=== PATIENT | male | born 1950 | race Two or more races ===

== ENCOUNTER 2016-09-26 07:12 | Outpatient (CLI) | payer MEDICARE, BC ==
[2016-09-26 12:07] LABS: PSA FREE 0.22 ng/mL (0.16-2.81)
[2016-09-26 12:08] LABS: PSA TOTAL 2.36 ng/mL (0.000-2.000)
== END 2016-09-26 07:13 | disposition home or self-care (01) ==
LOC: LAB.F 07:12
PROVIDERS: ATTEND Nurse Practitioner Family
DX: C61 Malignant neoplasm of prostate (principal)
CPT/HCPCS: 36415; 84154

== ENCOUNTER 2017-04-07 07:18 | Outpatient (CLI) | payer MEDICARE, BC ==
[2017-04-07 10:13] LABS: BASOPHILS % (AUTO) 0.3 %; EOSINOPHILS # (AUTO) 0.2 10^3/uL (0.0-0.7); EOSINOPHILS % (AUTO) 2.2 %; HGB - HEMOGLOBIN 15.3 g/dL (14.0-18.0); LYMPHOCYTES # (AUTO) 2.3 10^3/uL (1.5-3.5); LYMPHOCYTES % (AUTO) 29.5 %; MEAN CORPUSCULAR HEMOGLOBIN 29.1 pg (27.0-31.0); MEAN CORPUSCULAR HGB CONC 34.5 g/dL (32.0-36.0); MEAN CORPUSCULAR VOLUME 84.3 fL (80.0-94.0); MEAN PLATELET VOLUME 8.8 fL (7.4-11.4); MONOCYTES # (AUTO) 0.9 10^3/uL (0.0-1.0); MONOCYTES % (AUTO) 11.1 %; NEUTROPHILS # (AUTO) 4.5 10^3/uL (1.5-6.6); NEUTROPHILS % (AUTO) 56.9 %; PLT - PLATELET COUNT 209 10^3/uL (130-450); RED BLOOD COUNT 5.28 10^6/uL (4.70-6.10); RED CELL DISTRIBUTION WIDTH 12.6 % (12.0-15.0)
[2017-04-07 10:40] LABS: HB2 TOTAL 16.7 g/dL; HEMOGLOBIN A1C 0.91 g/dL; HEMOGLOBIN A1C % 7.1 % (4.6-6.2)
== END 2017-04-07 07:19 | disposition home or self-care (01) ==
LOC: LAB.F 07:18
PROVIDERS: ATTEND Radiology Radiation Oncology
DX: E11.9 Type 2 diabetes mellitus without complications (principal); C61 Malignant neoplasm of prostate
CPT/HCPCS: 36415; 83036; 85025

== ENCOUNTER 2017-04-15 08:00 | Outpatient (CLI) | payer MEDICARE, BC | END 2017-04-15 08:01 | disposition home or self-care (01) | LOC: LAB.F 08:00 | PROVIDERS: ATTEND Radiology Radiation Oncology | DX: C61 Malignant neoplasm of prostate (principal) | CPT/HCPCS: 36415; 84153 ==

== ENCOUNTER 2017-09-22 14:27 | Outpatient (CLI) | payer MEDICARE, OTHER ==
[2017-09-22 17:44] LABS: BASOPHILS % (AUTO) 0.3 %; EOSINOPHILS # (AUTO) 0.1 10^3/uL (0.0-0.7); EOSINOPHILS % (AUTO) 1.5 %; HGB - HEMOGLOBIN 14.6 g/dL (14.0-18.0); LYMPHOCYTES # (AUTO) 2.2 10^3/uL (1.5-3.5); LYMPHOCYTES % (AUTO) 34.6 %; MEAN CORPUSCULAR HEMOGLOBIN 28.9 pg (27.0-31.0); MEAN CORPUSCULAR HGB CONC 33.8 g/dL (32.0-36.0); MEAN CORPUSCULAR VOLUME 85.6 fL (80.0-94.0); MONOCYTES # (AUTO) 0.6 10^3/uL (0.0-1.0); MONOCYTES % (AUTO) 9.6 %; NEUTROPHILS # (AUTO) 3.5 10^3/uL (1.5-6.6); PLT - PLATELET COUNT 227 10^3/uL (130-450); RED BLOOD COUNT 5.05 10^6/uL (4.70-6.10); RED CELL DISTRIBUTION WIDTH 12.8 % (12.0-15.0); WHITE BLOOD COUNT 6.4 x10^3/uL (4.8-10.8)
[2017-09-22 17:49] LABS: HB2 TOTAL 15.8 g/dL; HEMOGLOBIN A1C 1.72 g/dL; HEMOGLOBIN A1C % 12.1 % (4.6-6.2)
[2017-09-22 17:55] LABS: PSA FREE 0.09 ng/mL (0.16-2.81)
[2017-09-22 17:56] LABS: PSA TOTAL 0.97 ng/mL (0.000-2.000)
== END 2017-09-22 14:28 | disposition home or self-care (01) ==
LOC: LAB.F 14:27
PROVIDERS: ATTEND Nurse Practitioner Family
DX: E11.9 Type 2 diabetes mellitus without complications (principal); C61 Malignant neoplasm of prostate
CPT/HCPCS: 36415; 82043; 83036; 84154; 85025

== ENCOUNTER 2017-10-06 10:21 | Outpatient (CLI) | payer MEDICARE, OTHER ==
--- NOTE | 2017-10-06 14:21 | XRAY Report ---
Procedure Date: 10/06/2017 Accession Number: [id number] / [id number] Procedure: XR - Foot 3 View LT CPT Code: FULL RESULT: EXAM: Foot 3 View LT DATE: 10/06/2017 10:47 AM CLINICAL HISTORY: CHRONIC L ANKLE PAIN + ACUTE L FOOT PAIN COMPARISON: None. TECHNIQUE: 3 views. FINDINGS: Bones: No evidence of fracture. Plantar calcaneal spurring. Joints: Mild degenerative changes of the interphalangeal joints. Soft Tissues: Normal. No soft tissue swelling. IMPRESSION: Mild degenerative changes. No evidence of fracture. RADIA
--- NOTE | 2017-10-06 14:22 | XRAY Report ---
Procedure Date: 10/06/2017 Accession Number: [id number] / [id number] Procedure: XR - Ankle 3 View LT CPT Code: FULL RESULT: EXAM: Ankle 3 View LT DATE: 10/06/2017 10:47 AM CLINICAL HISTORY: CHRONIC L ANKLE PAIN + ACUTE L FOOT PAIN COMPARISON: None. TECHNIQUE: 3 views. FINDINGS: Bones: Normal. No fractures or bone lesions. Joints: Normal. No tibiotalar joint effusion. No subluxations. Soft Tissues: Normal. No soft tissue swelling. IMPRESSION: Normal ankle radiography. RADIA
== END 2017-10-06 10:22 | disposition home or self-care (01) ==
LOC: DI 10:21
PROVIDERS: ATTEND Podiatrist
DX: M25.572 Pain in left ankle and joints of left foot (principal)

== ENCOUNTER 2018-01-01 07:36 | Outpatient (CLI) | payer MEDICARE, OTHER ==
[2018-01-01 17:35] LABS: HB2 TOTAL 15.3 g/dL; HEMOGLOBIN A1C 0.68 g/dL; HEMOGLOBIN A1C % 6.2 % (4.6-6.2)
[2018-01-01 18:14] LABS: CHOL/HDL RATIO 6.3 (<5.0); CHOLESTEROL 253 mg/dL; HDL CHOLESTEROL 40 mg/dL; LDL CHOLESTEROL,CALCULATED 147 mg/dL; LDL/HDL RATIO 3.7 (<3.6); VLDL CHOLESTEROL 66 mg/dL
== END 2018-01-01 07:37 | disposition home or self-care (01) ==
LOC: LAB.F 07:36
PROVIDERS: ATTEND Nurse Practitioner Family
DX: E78.5 Hyperlipidemia, unspecified (principal); E11.9 Type 2 diabetes mellitus without complications
CPT/HCPCS: 36415; 80061; 83036; 83721

== ENCOUNTER 2018-02-26 07:18 | Outpatient (CLI) | payer MEDICARE, OTHER ==
[2018-02-26 11:03] LABS: ALBUMIN 3.9 g/dL (3.2-5.5); ALKALINE PHOSPHATASE 45 IU/L (42-121); ALT ALANINE AMINOTRANSFERASE 32 IU/L (10-60); AST ASPARTATE AMINOTRANSFERASE 22 IU/L (10-42); BILIRUBIN,DIRECT 0.1 mg/dL (0.1-0.5); BILIRUBIN,TOTAL 0.7 mg/dL (0.2-1.0); CHOL/HDL RATIO 3.9 (<5.0); CHOLESTEROL 130 mg/dL; HDL CHOLESTEROL 33 mg/dL; LDL CHOLESTEROL,CALCULATED 54 mg/dL; LDL/HDL RATIO 1.6 (<3.6); TOTAL PROTEIN 6.9 g/dL (6.7-8.2); VLDL CHOLESTEROL 43 mg/dL
== END 2018-02-26 07:19 | disposition home or self-care (01) ==
LOC: LAB.F 07:18
PROVIDERS: ATTEND Nurse Practitioner Family
DX: E78.5 Hyperlipidemia, unspecified (principal)
CPT/HCPCS: 36415; 80061; 80076; 83721

== ENCOUNTER 2018-03-02 10:56 | Outpatient (CLI) | payer MEDICARE, OTHER ==
[2018-03-02 18:08] LABS: THYROID STIMULATING HORMONE 1.74 uIU/mL (0.34-5.60)
[2018-03-02 18:10] LABS: FREE T4 (FREE THYROXINE) 0.95 ng/dL (0.58-1.64)
== END 2018-03-02 10:57 | disposition home or self-care (01) ==
LOC: LAB.F 10:56
PROVIDERS: ATTEND Nurse Practitioner Family
DX: E78.5 Hyperlipidemia, unspecified (principal); I10 Essential (primary) hypertension
CPT/HCPCS: 36415; 84439; 84443

== ENCOUNTER 2018-04-02 08:05 | Outpatient (CLI) | payer MEDICARE, OTHER ==
[2018-04-02 11:47] LABS: HB2 TOTAL 15.7 g/dL; HEMOGLOBIN A1C 0.81 g/dL; HEMOGLOBIN A1C % 6.9 % (4.6-6.2)
== END 2018-04-02 08:06 | disposition home or self-care (01) ==
LOC: LAB.F 08:05
PROVIDERS: ATTEND Nurse Practitioner Family
DX: E11.9 Type 2 diabetes mellitus without complications (principal); Z79.4 Long term (current) use of insulin
CPT/HCPCS: 36415; 83036

== ENCOUNTER 2018-04-15 07:12 | Outpatient (CLI) | payer MEDICARE, OTHER ==
[2018-04-15 10:40] LABS: CHOL/HDL RATIO 3.1 (<5.0); CHOLESTEROL 119 mg/dL; HDL CHOLESTEROL 38 mg/dL; LDL CHOLESTEROL,CALCULATED 48 mg/dL; LDL/HDL RATIO 1.3 (<3.6); VLDL CHOLESTEROL 33 mg/dL
== END 2018-04-15 07:13 | disposition home or self-care (01) ==
LOC: LAB.F 07:12
PROVIDERS: ATTEND Nurse Practitioner Family
DX: E78.5 Hyperlipidemia, unspecified (principal); C61 Malignant neoplasm of prostate
CPT/HCPCS: 36415; 80061; 83721; 84153

== ENCOUNTER 2018-10-11 07:07 | Outpatient (CLI) | payer MEDICARE, OTHER ==
[2018-10-11 10:42] LABS: ALBUMIN 3.8 g/dL (3.2-5.5); ALBUMIN/GLOBULIN RATIO 1.3 (1.0-2.2); ALKALINE PHOSPHATASE 39 IU/L (42-121); ALT ALANINE AMINOTRANSFERASE 33 IU/L (10-60); AST ASPARTATE AMINOTRANSFERASE 24 IU/L (10-42); BILIRUBIN,TOTAL 0.7 mg/dL (0.2-1.0); BUN - BLOOD UREA NITROGEN 23 mg/dL (6-20); CALCIUM 8.9 mg/dL (8.5-10.3); CARBON DIOXIDE - CO2 25 mmol/L (21-32); CHLORIDE 106 mmol/L (101-111); CHOL/HDL RATIO 3.1 (<5.0); CHOLESTEROL 112 mg/dL; CREATININE 0.9 mg/dL (0.6-1.2); GFR - MDRD 84 (>89); GLUCOSE 163 mg/dL (70-100); HDL CHOLESTEROL 36 mg/dL; LDL CHOLESTEROL,CALCULATED 51 mg/dL; LDL/HDL RATIO 1.4 (<3.6); SODIUM 141 mmol/L (135-145); TOTAL PROTEIN 6.8 g/dL (6.7-8.2); VLDL CHOLESTEROL 25 mg/dL
[2018-10-11 10:50] LABS: HB2 TOTAL 13.7 g/dL; HEMOGLOBIN A1C 0.8 g/dL; HEMOGLOBIN A1C % 7.5 % (4.6-6.2)
== END 2018-10-11 07:08 | disposition home or self-care (01) ==
LOC: LAB.S 07:07
PROVIDERS: ATTEND Internal Medicine
DX: E78.5 Hyperlipidemia, unspecified (principal); E11.9 Type 2 diabetes mellitus without complications
CPT/HCPCS: 36415; 80053; 80061; 83036; 83721

== ENCOUNTER 2018-10-18 07:29 | Outpatient (CLI) | payer MEDICARE, OTHER | END 2018-10-18 07:30 | disposition home or self-care (01) | LOC: LAB.S 07:29 | PROVIDERS: ATTEND Radiology Radiation Oncology | DX: C61 Malignant neoplasm of prostate (principal) | CPT/HCPCS: 36415; 84153 ==

== ENCOUNTER 2018-11-10 07:29 | Outpatient (CLI) | payer MEDICARE, OTHER ==
--- NOTE | 2018-11-10 20:44 | Ultrasound Report ---
Reason: LEFT GROIN PAIN Procedure Date: 11/10/2018 Accession Number: [id number] / [id number] Procedure: US - Pelvic Limited or F/U CPT Code: FULL RESULT: EXAM: INGUINAL ULTRASOUND EXAM DATE: 11/10/2018 08:04 AM. CLINICAL HISTORY: Left groin pain. COMPARISON: None. TECHNIQUE: Real-time sonographic imaging of the left inguinal canal and vascular structures, including color-flow, was performed by the polymer materials consultant. Multiple site safety representative static images were saved for review. FINDINGS: Hernia: There is a left inguinal hernia demonstrated, positioned medial to the epigastric artery, containing fat and apparently also containing a small amount of bowel. This is shown to be reducible. There is some associated focal tenderness. The neck measures 9 mm. Soft Tissues: Normal. No fluid collections or adenopathy. Other: None. IMPRESSION: Reducible, left inguinal hernia containing fat and apparently a small amount of bowel. RADIA
== END 2018-11-10 07:30 | disposition home or self-care (01) ==
LOC: DI 07:29
PROVIDERS: ATTEND Surgery
DX: K40.90 Unilateral inguinal hernia, without obstruction or gangrene, not specified as recurrent (principal)
CPT/HCPCS: 76857

== ENCOUNTER 2018-11-30 06:57 | Day surgery (SDC) | payer MEDICARE, OTHER ==
[2018-11-30] MEDS ORDERED: fentaNYL 100 MCG/2 ML VIAL IVP ONE (06:58)
[2018-11-30] MEDS ORDERED: MIDAZOLAM 2 MG/2 ML VIAL IVP ONE (06:58)
[2018-11-30] MEDS ORDERED: LIDOCAINE-MPF 2% 5 ML VIAL IM ONE (06:58)
[2018-11-30] MEDS ORDERED: DEXAMETHASONE 4 MG/ML VIAL IVP ONE (06:58)
[2018-11-30] MEDS ORDERED: KETOROLAC 30 MG/ML VIAL IVP ONE (06:58)
[2018-11-30] MEDS ORDERED: PROPOFOL 200 MG/20 ML VIAL IVP ONE (06:58)
[2018-11-30] MEDS ORDERED: ONDANSETRON 4 MG/2 ML VIAL IVP ONE (06:58)
[2018-11-30] MEDS ORDERED: LACTATED RINGERS 1,000 ML IV ONE ×2 (07:02→09:54)
[2018-11-30] MEDS ORDERED: CEFAZOLIN SODIUM IN 0.9 % NACL 2 GM/100 ML BAG IV ONE (07:11)
--- NOTE | 2018-11-30 08:04 | ANESTHESIA ---
Pre-Anesthesia VS, & Labs - Diagnosis left inguinal hernia, umbilical hernia - Procedure Left inguinal hernia repair, umbilical hernia repair Vital Signs: Temp Pulse Resp BP Pulse Ox 36.1 C L 71 16 132/76 H 99 11/30/18 07:13 11/30/18 07:13 11/30/18 07:13 11/30/18 07:13 11/30/18 07:13 Height 5 ft 10 in Weight (kg) 83 kg Body Mass Index 26.6 - NPO >8 hours - Lab Results Current Lab Results: Laboratory Tests 11/30/18 07:24: POC Whole Bld Glucose 162 H Home Medications and Allergies Home Medications: Ambulatory Orders Atorvastatin Calcium 80 mg PO QPM 11/25/18 Lisinopril 5 mg PO DAILY 11/25/18 Naproxen [Naprosyn] 500 mg PO BID PRN 11/25/18 [place]-3 Acid Ethyl Esters 2 cap PO BIDWM 11/25/18 Gabapentin 900 mg PO QPM 10/09/17 Metformin HCl 1,000 mg PO BIDWM 10/09/17 SUMAtriptan succinate [Sumatriptan Succinate] 100 mg PO PRN PRN 10/09/17 glipiZIDE [Glipizide] 5 mg PO BID 10/09/17 Atorvastatin Calcium 80 mg PO QPM 11/25/18 Lisinopril 5 mg PO DAILY 11/25/18 Naproxen [Naprosyn] 500 mg PO BID PRN 11/25/18 [place]-3 Acid Ethyl Esters 2 cap PO BIDWM 11/25/18 Allergies/Adverse Reactions: Allergies Allergy/AdvReac Type Severity Reaction Status Date / Time No Known Drug Allergies Allergy Verified 10/08/17 15:07 Anes History & Medical History - Anesthetic History Anesthesia Complications: reports: No previous complications - Medical History Cardiovascular: reports: Hypertension, High cholesterol, Murmur Pulmonary: reports: None Gastrointestinal: reports: None Urinary: reports: Other Neuro: reports: Head injury, Migraines Musculoskeletal: reports: Osteoarthritis Endocrine/Autoimmune: reports: Type 2 diabetes Smoking Status: Never smoker - Surgical History General: Colonoscopy Eyes Ears Nose Throat (EENT): Tonsil/Adenoidectomy Exam General: Alert Dental: WNL Mouth Opening: Greater than 4 Fingerbreadths Mallampati classification: II Thyromental Distance: greater than 6 cm Respiratory: Lungs clear Cardiovascular: Regular rate, Normal S1, Normal S2 Plan Anesthesia Type: General Consent for Procedure(s) Verified and Reviewed: Yes Code Status: Attempt Resuscitation ASA classification: 2-Mild systemic disease Is this case an emergency?: No
[2018-11-30] MEDS ORDERED: ceFAZolin 1 GM VIAL ONE (08:16)
[2018-11-30] MEDS: LIDOCAINE-MPF 1% 30 ML VIAL ONE ×2 (08:56→09:34)
[2018-11-30] MEDS: BUPIVACAINE 0.5%-EPI 1:200000 PF 30 ML VIAL ONE ×2 (08:59→09:34)
--- NOTE | 2018-11-30 09:52 | OPERATIVE REPORT ---
Operative Report - General Procedure Date: 11/30/18 Planned Procedure: Umbilical hernia repair and left inguinal hernia repair Pre-Op Diagnosis: Umbilical hernia and left inguinal hernia Procedure Performed: Umbilical hernia repair and left inguinal hernia repair Post Op Diagnosis: Same - Procedure Note Primary Surgeon: Leticia Anesthesia Provider: CONG Abel Anesthesia Technique: General LMA, Local Pathology: None IV Fluids (mL): 500 Estimated Blood Loss (mL): 10 Findings: Moderate indirect left inguinal hernia Small umbilical hernia Complications: None apparent - Other Other Information/Narrative: After obtaining informed consent, the patient is brought to the operating room and placed in the supine position on the operating table. Following successful induction of general anesthesia, appropriate padding of all bony prominences, and placement of appropriate monitors, the abdomen and groin are prepped and draped in the standard surgical fashion. A timeout was held per scope protocol. All elements of the surgical safety checklist were followed before, during, and after this procedure. We began with the umbilical hernia. Following infiltration with local anesthetic and incision was created directly over the hernia defect. The umbilicus was released from the overlying skin and the hernia sac allowed to fall back into the abdominal cavity. The edges of the fascia were carefully defined. The defect was approximately 1.5 cm. Due to its small size and the patient's excellent physical conditioning, we elected to close it with i nterrupted Prolene suture. The wound was checked for hemostasis. It was irrigated with antibiotic solution. It was then closed with Vicryl Monocryl suture including bellybutton reconstruction. We now turned our attention to the left inguinal hernia. We began with an ileal inguinal nerve block by infiltrating a mixture of local anesthetics medial to the anterior superior iliac spine on the left. We then continued by infiltrating a site for the incision in the left lower quadrant with the same mixture of local anesthetics. An incision was created and carried down through the skin and subtendinous tissue to reveal the fascia of the external oblique aponeurosis. The aponeurosis was opened in the direction of its fibers. The fibers were reflected laterally. The ilioinguinal nerve was carefully identified and avoided. The spermatic cord and hernia sac were encircled with a Egan drain. The hernia sac and a small cord lipoma were then carefully dissected from the cord structures and reduced back into the abdominal cavity. The hernia was noted to be a moderate sized indirect inguinal hernia. We then repaired the hernia using an extended piece of Prolene hernia system mesh. This was deployed into the preperitoneal space with the posterior leaflet straightened and flattened in the space. A rena was then created in the overlying leaflet in the lateral aspect for placement of the spermatic cord. Spermatic cord was then gently placed in this space and the leaflets sewn closed. The spermatic cord was seen to lay without tension on the surface of the anterior leaflet. The anterior leaflet was then sewn to the pubic tubercle with a single 0 Vicryl stitch. The lateral aspect of the leaflet was then tucked under the external oblique aponeurosis. The wound was checked for hemostasis. The leaflets were then reapproximated after carefully replacing the ilioinguinal nerve on the surface of the spermatic cord. The leaflets were then closed with a running Vicryl suture. The wound was checked once again for hemostasis and irrigated again Emma's fascia was then reapproximated and Monocryl stitches were placed in the skin. All sponge, needle, and instrument counts were correct at the conclusion of the case. The patient was allowed to awake from anesthesia without difficulty and taken to the postanesthesia care unit in good condition.
[2018-11-30] MEDS ORDERED: ONDANSETRON 4 MG/2 ML VIAL IVP PRN (09:57)
[2018-11-30] MEDS ORDERED: oxyCODONE 5 MG TABLET PO PRN (09:57)
[2018-11-30] MEDS ORDERED: HYDROmorphone 0.5 MG/0.5 ML SYRINGE IVP PRN (09:57)
[2018-11-30] MEDS ORDERED: oxyCODONE 5 MG TABLET ONE (10:58)
[2018-11-30 11:35] VITALS: BP 145/75
== END 2018-11-30 06:58 | disposition home or self-care (01) ==
LOC: SDS 06:57
PROVIDERS: ATTEND Surgery
PROC: 0VBG0ZZ Excision of Left Spermatic Cord, Open Approach (ICD-10-PCS; 2018-11-30)
PROC: 0YU60JZ Supplement Left Inguinal Region with Synthetic Substitute, Open Approach (ICD-10-PCS; principal; 2018-11-30 08:30)
PROC: 0WQF0ZZ Repair Abdominal Wall, Open Approach (ICD-10-PCS; 2018-11-30 08:30)
DX: K40.90 Unilateral inguinal hernia, without obstruction or gangrene, not specified as recurrent (principal); K42.9 Umbilical hernia without obstruction or gangrene; D17.6 Benign lipomatous neoplasm of spermatic cord; E11.9 Type 2 diabetes mellitus without complications; I10 Essential (primary) hypertension; Z85.46 Personal history of malignant neoplasm of prostate
CPT/HCPCS: 49505; 49585; 55520; A9270; C1713; J0690; J7120

== ENCOUNTER 2019-04-11 11:12 | Outpatient (CLI) | payer MEDICARE, OTHER | END 2019-04-11 11:13 | disposition home or self-care (01) | LOC: LAB.S 11:12 | PROVIDERS: ATTEND Radiology Radiation Oncology | DX: C61 Malignant neoplasm of prostate (principal) | CPT/HCPCS: 36415; 84153 ==

== ENCOUNTER 2019-10-04 07:06 | Outpatient (CLI) | payer MEDICARE, OTHER | END 2019-10-04 07:07 | disposition home or self-care (01) | LOC: LAB.S 07:06 | PROVIDERS: ATTEND Radiology Radiation Oncology | DX: Z85.46 Personal history of malignant neoplasm of prostate (principal) | CPT/HCPCS: 36415; 84153 ==

== ENCOUNTER 2019-10-19 07:14 | Outpatient (CLI) | payer MEDICARE, OTHER ==
[2019-10-19 15:38] LABS: ALBUMIN 4.2 g/dL (3.2-5.5); ALBUMIN/GLOBULIN RATIO 1.2 (1.0-2.2); ALKALINE PHOSPHATASE 49 IU/L (42-121); ALT ALANINE AMINOTRANSFERASE 39 IU/L (10-60); AST ASPARTATE AMINOTRANSFERASE 25 IU/L (10-42); BILIRUBIN,TOTAL 0.8 mg/dL (0.2-1.0); BUN - BLOOD UREA NITROGEN 23 mg/dL (6-20); CALCIUM 9.2 mg/dL (8.5-10.3); CARBON DIOXIDE - CO2 27 mmol/L (21-32); CHLORIDE 102 mmol/L (101-111); CHOLESTEROL 153 mg/dL; GLUCOSE 142 mg/dL (70-100); HDL CHOLESTEROL 38 mg/dL; LDL CHOLESTEROL,CALCULATED 58 mg/dL; LDL/HDL RATIO 1.5 (<3.6); SODIUM 136 mmol/L (135-145); TOTAL PROTEIN 7.6 g/dL (6.7-8.2); VLDL CHOLESTEROL 57 mg/dL
== END 2019-10-19 07:15 | disposition home or self-care (01) ==
LOC: LAB.S 07:14
PROVIDERS: ATTEND Internal Medicine
DX: E78.5 Hyperlipidemia, unspecified (principal); I10 Essential (primary) hypertension; E11.9 Type 2 diabetes mellitus without complications; C61 Malignant neoplasm of prostate
CPT/HCPCS: 36415; 80053; 80061; 81599; 83036; 83721

== ENCOUNTER 2020-05-15 09:21 | Outpatient (CLI) | payer MEDICARE, OTHER | END 2020-05-15 09:22 | disposition left against medical advice (07) | LOC: EMS 09:21 | DX: M25.512 Pain in left shoulder (principal) ==

== ENCOUNTER 2020-05-15 10:31 | Observation (INO) | payer MEDICARE, OTHER ==
[2020-05-15 11:05] LABS: BASOPHILS % (AUTO) 0.6 %; EOSINOPHILS # (AUTO) 0.2 10^3/uL (0.0-0.7); EOSINOPHILS % (AUTO) 2.4 %; HCT - HEMATOCRIT 45.6 % (42.0-52.0); HGB - HEMOGLOBIN 15.2 g/dL (14.0-18.0); LYMPHOCYTES # (AUTO) 2.1 10^3/uL (1.5-3.5); LYMPHOCYTES % (AUTO) 34.6 %; MEAN CORPUSCULAR HEMOGLOBIN 28.7 pg (27.0-31.0); MEAN CORPUSCULAR HGB CONC 33.3 g/dL (32.0-36.0); MONOCYTES # (AUTO) 0.7 10^3/uL (0.0-1.0); MONOCYTES % (AUTO) 10.8 %; NEUTROPHILS # (AUTO) 3.2 10^3/uL (1.5-6.6); NEUTROPHILS % (AUTO) 51.3 %; PLT - PLATELET COUNT 236 10^3/uL (130-450); RED CELL DISTRIBUTION WIDTH 12.1 % (12.0-15.0); WHITE BLOOD COUNT 6.2 x10^3/uL (4.8-10.8)
--- NOTE | 2020-05-15 11:11 | XRAY Report ---
PROCEDURE: Chest 1 View X-Ray INDICATIONS: Chest Pain TECHNIQUE: One view of the chest was acquired. COMPARISON: None. FINDINGS: Surgical changes and devices: None. Lungs and pleura: No pleural effusions or pneumothorax. Lungs are clear. Mediastinum: Mediastinal contours appear normal. Heart size is normal. Bones and chest wall: No suspicious bony lesions. Overlying soft tissues appear unremarkable. IMPRESSION: No acute cardiopulmonary disease. Reviewed by: Junaid Bradford MD on 05/15/2020 11:09 AM [facility] Approved by: Junaid Bradford MD on 05/15/2020 11:09 AM [facility] Station ID: [id number]
--- NOTE | 2020-05-15 11:14 | ED Physician Documentation ---
History of Present Illness - Stated complaint Stated Complaint: SHOULDER PX/SENT BY EMS - Chief complaint Chief Complaint: Cardiac - History obtained from History obtained from: Patient - Additonal information Additional information: 69yF with pmh htn, hld, former smoker, heart murmur, p/w L chest pain radiating to L arm, sudden onset this am, severe constant, now mild, a/w sob. last stress test 3 years ago. denies fever back pain nausea diaphoresis. Review of Systems Ten Systems: 10 systems reviewed and negative Constitutional: denies: Fever, Chills Cardiac: reports: Chest pain / pressure Respiratory: reports: Dyspnea. denies: Cough GI: denies: Nausea Musculoskeletal: reports: Extremity pain PD PAST MEDICAL HISTORY - Past Medical History Cardiovascular: Hypertension, High cholesterol, Murmur Respiratory: None Neuro: Head injury, Migraines Endocrine/Autoimmune: Type 2 diabetes GI: None : Other HEENT: None Psych: Depression, Claustrophobia Musculoskeletal: Osteoarthritis - Past Surgical History General: Colonoscopy HEENT: Tonsil/Adenoidectomy - Present Medications Home Medications: Ambulatory Orders Medication Instructions Recorded Confirmed Gabapentin 900 mg PO QPM 10/09/17 05/15/20 Metformin HCl 1,000 mg PO BIDWM 10/09/17 05/15/20 glipiZIDE [Glipizide] 5 mg PO DAILY 10/09/17 05/15/20 Atorvastatin Calcium 80 mg PO QPM 11/25/18 05/15/20 lisinopriL [Lisinopril] 5 mg PO DAILY 11/25/18 05/15/20 - Allergies Allergies/Adverse Reactions: Allergies Allergy/AdvReac Type Severity Reaction Status Date / Time No Known Drug Allergies Allergy Verified 05/15/20 10:44 - Social History Smoking Status: Never smoker PD ED PE NORMAL - Vitals Vital signs reviewed: Yes - General General: Alert and oriented X 3, No acute distress, Well developed/nourished - HEENT HEENT: Atraumatic, PERRL, EOMI - Neck Neck: Supple, no meningeal sign, No bony TTP - Cardiac Cardiac: RRR, Other (systolic murmur) - Respiratory Respiratory: No respiratory distress, Clear bilaterally - Abdomen Abdomen: Non tender, Non distended - Male Male : Deferred - Rectal Rectal: Deferred - Back Back: No CVA TTP - Derm Derm: Normal color - Extremities Extremities: No deformity - Neuro Neuro: Alert and oriented X 3 - Psych Psych: Normal mood, Normal affect Results - Vitals Vitals: Vital Signs - 24 hr 05/15/20 05/15/20 05/15/20 10:36 11:05 11:57 Temperature 37 C 37.0 C Heart Rate 113 H 68 84 Respiratory 18 12 16 Rate Blood Pressure 147/90 H 143/90 H 149/75 H O2 Saturation 99 98 98 05/15/20 13:00 Temperature Heart Rate 76 Respiratory 16 Rate Blood Pressure 109/90 H O2 Saturation 98 Oxygen O2 Source Room air - EKG (time done) 1048 Rate: Rate (enter#) (77) Rhythm: NSR Ischemia: Normal ST segments, Q waves (Q wave with 1mm width in lead III and avF concerning for old ischemia. no prior ekg available other than 2019 single lead. ). No: T wave inversion - Labs Labs: Laboratory Tests 05/15/20 05/15/20 05/15/20 10:56 10:56 10:56 WBC 6.2 RBC 5.30 Hgb 15.2 Hct 45.6 MCV 86.0 MCH 28.7 MCHC 33.3 RDW 12.1 Plt Count 236 MPV 10.0 Neut # (Auto) 3.2 Lymph # (Auto) 2.1 Lipscomb # (Auto) 0.7 Eos # (Auto) 0.2 Baso # (Auto) 0.0 Absolute Nucleated RBC 0.00 Nucleated RBC % 0.0 Sodium 138 Potassium 3.8 Chloride 103 Carbon Dioxide 24 Anion Gap 11.0 BUN 23 H Creatinine 1.0 Estimated GFR (MDRD) 75 L Glucose 215 H Estimat Average Glucose Hemoglobin A1c % Calcium 9.3 Total Bilirubin 0.9 AST 20 ALT 34 Alkaline Phosphatase 50 Troponin I High Sens 3.3 Total Protein 7.2 Albumin 4.1 Globulin 3.1 Albumin/Globulin Ratio 1.3 Lipase 32 05/15/20 10:56 WBC RBC Hgb Hct MCV MCH MCHC RDW Plt Count MPV Neut # (Auto) Lymph # (Auto) Lipscomb # (Auto) Eos # (Auto) Baso # (Auto) Absolute Nucleated RBC Nucleated RBC % Sodium Potassium Chloride Carbon Dioxide Anion Gap BUN Creatinine Estimated GFR (MDRD) Glucose Estimat Average Glucose 189 H Hemoglobin A1c % 8.2 H Calcium Total Bilirubin AST ALT Alkaline Phosphatase Troponin I High Sens Total Protein Albumin Globulin Albumin/Globulin Ratio Lipase PD MEDICAL DECISION MAKING - ED course ED course: 69yM presents with high risk chest pain/LUE pain, found to have old inferior mi on ekg but no acute stemi, normal trop. plan for stress test tomorrow. patient agreeable. Departure - Departure Disposition: ED Place in Observation Clinical Impression: Chest pain, Shoulder pain, left, Shortness of breath Condition: Stable Discharge Date/Time: 05/15/20 14:45
[2020-05-15 11:28] LABS: ALBUMIN 4.1 g/dL (3.2-5.5); ALBUMIN/GLOBULIN RATIO 1.3 (1.0-2.2); BILIRUBIN,TOTAL 0.9 mg/dL (0.2-1.0); CALCIUM 9.3 mg/dL (8.5-10.3); POTASSIUM 3.8 mmol/L (3.5-5.0); TOTAL PROTEIN 7.2 g/dL (6.7-8.2)
[2020-05-15] MEDS ORDERED: ASPIRIN 325 MG TABLET PO STA (11:38)
[2020-05-15] MEDS ORDERED: LACTATED RINGERS 1,000 ML IV STA (12:39)
[2020-05-15] MEDS ORDERED: MORPHINE 2 MG/ML CARPUJECT IVP PRN (13:27)
[2020-05-15] MEDS ORDERED: SODIUM CHLORIDE FLUSH 0.9% 10 ML SYRINGE IVP PRN (13:27)
[2020-05-15] MEDS ORDERED: ONDANSETRON 4 MG/2 ML VIAL IVP PRN (13:27)
--- NOTE | 2020-05-15 13:40 | HISTORY & PHYSICAL EXAMINATION ---
Chief Complaint - Chief Complaint Chief Complaint: chest pain History of Present Illness - Admitted From Admitted From:: ER - History Obtained From Records Reviewed: [facility] History obtained from: pt Exam Limitations: no - History of Present Illness HPI Comment/Other: This is a 69-years old male with a past medical history significant for hypertension, hyperlipidemia, murmur, Head injury, migrainous headache, diabetic 2, depression, claustrophobia, osteoarthritis, Who present to ER complain left arm and left shoulder pain. Patient reports in this morning he suddenly feel left arm and left shoulder pain, he reported pain is 8-9 out of 10. He denies any injury, he denies any sensation abnormal or weakness unilaterally. The pain last about 45 to 1 hours. Patient report his arm still has mild pain. He denies any other location of pain such as no left chest pain. He did report he feel shortness breathing before his left arm pain. He denies nausea, vomiting, diaphoresis. He reported he had heart murmur about when he was 17 years old. Initiated troponin, EKG did not reveals acute heart attack. Chest x-ray was unremarkable. Discussed the care goal with patient, patient requests full code. History - Past Medical History Cardiovascular: reports: Hypertension, High cholesterol, Murmur Respiratory: reports: None Neuro: reports: Head injury, Migraines Endocrine/Autoimmune: reports: Type 2 diabetes GI: reports: None : reports: Other HEENT: reports: None Psych: reports: Depression, Claustrophobia Musculoskeletal: reports: Osteoarthritis MRSA Hx?: No - Past Surgical History General: reports: Colonoscopy HEENT: reports: Tonsil/Adenoidectomy - Family & Social History Family History: Mother: , Father: Family History Comment/Other: Patient reported he is adopted. He did not not know his father and mother medical condition but he did know his biological grandfather Medical condition. He reported his grandfather from congestive heart failure and related heart attack problem. Social History Notes: Patient reported he was cigarette smoker when he was very young, he denies alcohol or drug issue. Meds/Allgy - Home Medications Home Medications: Ambulatory Orders Medication Instructions Recorded Confirmed Gabapentin 900 mg PO QPM 10/09/17 05/15/20 Metformin HCl 1,000 mg PO BIDWM 10/09/17 05/15/20 glipiZIDE [Glipizide] 5 mg PO BID 10/09/17 05/15/20 Atorvastatin Calcium 80 mg PO QPM 11/25/18 05/15/20 lisinopriL [Lisinopril] 5 mg PO DAILY 11/25/18 05/15/20 - Allergies Allergies/Adverse Reactions: Allergies Allergy/AdvReac Type Severity Reaction Status Date / Time No Known Drug Allergies Allergy Verified 05/15/20 10:44 Review of Systems - Constitutional Constitutional: denies: Fatigue, Fever, Chills, Malaise, Weakness, Poor appeti te, Diaphoresis - Eyes Eyes: denies: Pain, Blurred vision, Field loss, Vision loss - Ears, Nose & Throat Ears, Nose & Throat: denies: Ear pain, Vertigo, Nosebleeds, Mouth lesions - Cardiovascular Cariovascular: reports: Exertional dyspnea. denies: Irregular heart rate, Palpitations, Chest pain, Edema, Lightheadedness, Syncope, Decr. exercise tolerance - Respiratory Respiratory: denies: Cough, Sputum production, Wheezing, Hemoptysis, Orthopnea, SOB at rest, SOB with exertion - Gastrointestinal Gastrointestinal: denies: Abdominal pain, Constipation, Diarrhea, Rectal bleeding, Black stools, Bloody stools, Nausea, Vomiting - Genitourinary Genitourinary: denies: Dysuria, Urgency, Incontinence - Musculoskeletal Musculoskeletal: reports: Other (Left arm and left shoulder pain, pain last about at 45 min to 1-hour). denies: Muscle pain, Back pain, Muscle aches, Stiffness, Limited range of motion, Muscle weakness - Integumentary Integumentary: denies: Rash, Lesions, Lumps - Neurological Neurological: denies: General weakness, Focal weakness, Headache, Dizziness, Numbness, Memory problems, Pre-existing deficit, Abnormal gait, Seizures, Inco ordination, Slurred speech - Psychiatric Psychiatric: denies: Depression, Suicidal - Endocrine Endocrine: denies: Polyuria, Polyphagia - Hematologic/Lymphatic Hematologic/Lymphatic: denies: Anemia, Petechiae, Blood clots Prior Level of Functionality: Patient is independent in the home Exam - Vital Signs Vital Signs: Vital Signs x48h Temp Pulse Resp BP Pulse Ox 05/15/20 13:00 76 16 109/90 H 98 05/15/20 11:57 84 16 149/75 H 98 05/15/20 11:05 37.0 C 68 12 143/90 H 98 05/15/20 10:36 37 C 113 H 18 147/90 H 99 - Physical Exam General Appearance: positive: No acute distress, Alert. negative: Lethargic Eyes Bilateral: positive: Normal inspection, PERRL, No lid inflammation ENT: positive: ENT inspection nml, No signs of dehydration. negative: Purulent nasal drainage Neck: positive: Nml inspection, Trachea midline. negative: Thyromegaly, Tracheal deviation Respiratory: positive: Chest non-tender, No respiratory distress, Breath sounds nml. negative: Wheezes, Rales, Rhonchi Cardiovascular: positive: Regular rate & rhythm, Diastolic murmur. negative: No murmur, Tachycardia, Bradycardia Peripheral Pulses: positive: 2+ Abdomen: positive: Non-tender, Nml bowel sounds, No distention. negative: Tende rness, Guarding, Rebound Back: positive: Nml inspection. negative: CVA tenderness (R), CVA tenderness (L) Skin: positive: Color nml, Warm, Dry. negative: Cyanosis, Diaphoresis, Pallor Extremities: positive: Non-tender, Full ROM, Nml appearance. negative: Calf tenderness Neurologic/Psychiatric: positive: Oriented x3, Motor nml, Sensation nml, Mood/affect nml. negative: Weakness, Sensory loss, Facial droop, Slurred/abnml speech, Depressed mood/affect Sepsis Event Note (H) - Evaluation Current Stage of Sepsis: Ruled out Conclusion/Plan - Problem List (1) Shoulder pain, left Conclusion/Plan: Patient report he suddenly have left arm and left shoulder pain and he report he has no other location pain. He denies unilaterally weakness or abnormal se nsation. Patient denies any injury. Patient has a history of hypertension and diabetic. His grandfather has congestive heart failure and heart attack. Initial troponin and EKG was unremarkable. We will have stress test for patient on tomorrow, continue to finish troponin test, and gas examiner, And echo test. ER already give patient 325 mg aspirin, will continue baby aspirin tomorrow. Lipid panel test on tomorrow (2) Diabetes Conclusion/Plan: Patient has history diabetic 2, no insulin in the home, we will start sliding scale, Check A1c, glucose check, hypoglycemia protocol (3) HTN (hypertension) Conclusion/Plan: Stable, we will resume home blood pressure medicine (4) Heart murmur Conclusion/Plan: Patient has history heart murmur in his young age, we will have echo To monitor - Lab Results Fish Bones: 05/15/20 10:56 05/15/20 10:56 Core Measures - Anticipated LOS I expect patient to be DC'd or transferred within 96 hours.: Yes - DVT/VTE - Prophylaxis VTE/DVT Device ordered at admit?: Yes VTE/DVT Prophylaxis med ordered at admit?: Yes
[2020-05-15] MEDS: INSULIN ASPART 300 UNIT/3 ML PEN SUBQ SCH ×2 (17:46→20:38)
[2020-05-15] MEDS: SODIUM CHLORIDE FLUSH 0.9% 10 ML SYRINGE IVP SCH (17:47)
--- NOTE | 2020-05-15 18:48 | PHARMACY PROGRESS NOTE ---
- Best Possible Medication History Admit Date and Time: 05/15/20 1327 Processed by: Pharmacy Medication History completed: Yes Patient Interview: Completed Secondary Source(s): Insurance records (Interviewed by Soni 05/15) As the person ultimately responsible for medication therapy, providers are able to order a medication from an existing home medication list in [facility] via the "Reconcile Routine" prior to Confirmation of that medication by support team assoc. Such practice is discouraged except when the physician, in their clinical judgment, deems that a medical need exists for a medication without regard to previous use.
[2020-05-15 20:12] LABS: ESTIMATED AVERAGE GLUCOSE 189 mg/dL (70-100); HEMOGLOBIN A1c% 8.2 % (4.27-6.07)
[2020-05-15] MEDS: FAMOTIDINE 20 MG TABLET PO SCH (20:35)
[2020-05-15] MEDS ORDERED: GABAPENTIN 300 MG CAPSULE PO SCH (21:00)
[2020-05-15 21:18] LABS: B. PARAPERTUSSIS- RESP PCR PAN NOT DETECTED; B. PERTUSSIS- RESP PCR PANEL NOT DETECTED; C. PNEUMONIAE- RESP PCR PANEL NOT DETECTED; CORONAVIRUS 229E-RESP PCR NOT DETECTED; CORONAVIRUS HKU1-RESP PCR NOT DETECTED; CORONAVIRUS NL63-RESP PCR NOT DETECTED; CORONAVIRUS OC43-RESP PCR NOT DETECTED; HUMAN METAPNEUMOVIRUS NOT DETECTED; INFLUENZA A- RESP PCR PANEL NOT DETECTED; INFLUENZA B - RESP PCR PANEL NOT DETECTED; M. PNEUMONIAE- RESP PCR PANEL NOT DETECTED; PARAINFLUENZA VIRUS 1 NOT DETECTED; PARAINFLUENZA VIRUS 2 NOT DETECTED; PARAINFLUENZA VIRUS 3 NOT DETECTED; PARAINFLUENZA VIRUS 4 NOT DETECTED; RHINOVIRUS/ENTEROVIRUS NOT DETECTED; RSV- RESP PCR PANEL NOT DETECTED; SARS-CoV-2 -RESP PCR PANEL NOT DETECTED
[2020-05-16] MEDS: SODIUM CHLORIDE FLUSH 0.9% 10 ML SYRINGE IVP SCH ×3 (00:11→17:48)
[2020-05-16] MEDS ORDERED: SODIUM CHLORIDE 0.9% 1,000 ML IV SCH (01:00)
[2020-05-16 05:39] LABS: BASOPHILS % (AUTO) 0.4 %; EOSINOPHILS # (AUTO) 0.2 10^3/uL (0.0-0.7); EOSINOPHILS % (AUTO) 3.4 %; HCT - HEMATOCRIT 42.1 % (42.0-52.0); HGB - HEMOGLOBIN 13.8 g/dL (14.0-18.0); LYMPHOCYTES # (AUTO) 1.9 10^3/uL (1.5-3.5); LYMPHOCYTES % (AUTO) 33.9 %; MEAN CORPUSCULAR HEMOGLOBIN 28.8 pg (27.0-31.0); MEAN CORPUSCULAR HGB CONC 32.8 g/dL (32.0-36.0); MEAN CORPUSCULAR VOLUME 87.7 fL (80.0-94.0); MEAN PLATELET VOLUME 10.5 fL (7.4-11.4); MONOCYTES # (AUTO) 0.7 10^3/uL (0.0-1.0); MONOCYTES % (AUTO) 11.7 %; NEUTROPHILS # (AUTO) 2.9 10^3/uL (1.5-6.6); NEUTROPHILS % (AUTO) 50.2 %; PLT - PLATELET COUNT 200 10^3/uL (130-450); RED CELL DISTRIBUTION WIDTH 12.1 % (12.0-15.0); WHITE BLOOD COUNT 5.7 x10^3/uL (4.8-10.8)
[2020-05-16 06:04] LABS: CREATININE 0.9 mg/dL (0.6-1.2); POTASSIUM 4.5 mmol/L (3.5-5.0)
[2020-05-16 06:26] LABS: CHOL/HDL RATIO 4.6 (<5.0); CHOLESTEROL 151 mg/dL; HDL CHOLESTEROL 33 mg/dL; LDL CHOLESTEROL,CALCULATED 77 mg/dL; LDL/HDL RATIO 2.3 (<3.6); TRIGLYCERIDES 207 mg/dL; VLDL CHOLESTEROL 41 mg/dL
[2020-05-16] MEDS: ACETAMINOPHEN 325 MG TABLET PO PRN ×2 (07:21→16:11)
[2020-05-16] MEDS: FAMOTIDINE 20 MG TABLET PO SCH (08:37)
[2020-05-16] MEDS: INSULIN ASPART 300 UNIT/3 ML PEN SUBQ SCH ×3 (08:39→17:09)
[2020-05-16] MEDS ORDERED: ENOXAPARIN 40 MG/0.4 ML SYRINGE SUBQ SCH (09:00)
[2020-05-16] MEDS ORDERED: ASPIRIN CHEW 81 MG TABLET PO SCH (09:00)
--- NOTE | 2020-05-16 09:32 | CT Report ---
PROCEDURE: HEAD WO INDICATIONS: left arm weakness and numbness TECHNIQUE: Noncontrast 4.5 mm thick angled axial sections acquired from the foramen magnum to the vertex. For r adiation dose reduction, the following was used: automated exposure control, adjustment of mA and/or kV according to patient size. COMPARISON: None. FINDINGS: Image quality: Excellent. CSF spaces: Basal cisterns are patent. No extra-axial fluid collections. Ventricles are normal in size and shape. Brain: No midline shift. No intracranial masses or hemorrhage. Salomon-white matter interface is norm al. Small, ill-defined hypodensity in the right internal capsule posterior limb. Small benign basal ganglia calcifications bilaterally. Skull and face: Calvarium and visualized facial bones are intact, without suspicious lesions. Sinuses: Visualized sinuses and mastoids are clear. IMPRESSION: 1. No evidence of hemorrhage or mass effect. 2. Indistinct hypodensity in the right internal capsule white matter tracts. This likely represents s mall vessel ischemia of uncertain chronicity. MRI is recommended. Reviewed by: Lucretia Garcia MD on 05/16/2020 8:30 AM [facility] Approved by: Lucretia Garcia MD on 05/16/2020 8:30 AM [facility] Station ID: [id number]
[2020-05-16] MEDS ORDERED: CLOPIDOGREL 75 MG TABLET PO SCH (13:10)
[2020-05-16] MEDS ORDERED: LORazepam 2 MG/ML VIAL IVP STA (14:25)
[2020-05-16 16:32] VITALS: BP 137/84
--- NOTE | 2020-05-16 17:13 | MRI Report ---
PROCEDURE: Brain W/O INDICATIONS: stroke TECHNIQUE: Noncontrast axial T1 spin echo, axial T2 fast spin echo, sagittal and axial FLAIR, coronal T2 fast sp in echo, axial gradient echo, axial diffusion and ADC through the brain. COMPARISON: CT of the brain performed earlier the same day. FINDINGS: Image quality: Excellent. CSF Spaces: Basal cisterns are patent. No extra-axial fluid collections. Ventricles are normal in size and shape. Brain: No intracranial masses or hemorrhage. Salomon/white matter interface is normal. Brainstem appe ars normal. Diffusion-weighted images demonstrate no acute ischemic insult. No chronic ischemic ins ults. There are minimal scattered T2 and FLAIR hyperintensities in subcortical white matter of bilate ral frontal and parietal regions most suggestive of age-related change versus chronic microvascular i schemic change. Normal intravascular flow voids are present. Skull and face: Calvarium has normal marrow signal. Orbits appear normal. Sinuses: Sinuses and mastoids are clear. IMPRESSION: 1. No MR evidence of acute ischemia. 2. Nonspecific minor T2 and FLAIR white matter changes are age-appropriate. Reviewed by: Lucretia Garcia MD on 05/16/2020 4:12 PM [facility] Approved by: Lucretia Garcia MD on 05/16/2020 4:12 PM [facility] Station ID: [id number]
--- NOTE | 2020-05-16 17:21 | Discharge Plan ---
Discharge Plan Problem Reviewed?: Yes Disposition: Home, Self Care Condition: Stable Diet: Diabetic Activity Restrictions: Activity as Tolerated Shower Restrictions: No (fall precaution) Instruction Topics: Heart Attack Warning Signs, Nuclear Stress Test, Stroke Sx Health Concerns: Your left arm pain, abnormal sensation and weakness were resolved. MRI reveals you has no stroke. Stress test, ECHO study, Troponin and EKG study all were unremarkable, did not reveals acute heart attack. You may resume your home medications, keep hydration at home, followup with your PCP in one to two weeks. Plan of Treatment: as the above. Care Goals: stabilization and improvement/resolve of your medical conditions Assessment: discussed the test results, and care plan with you, you understood. Additional Instructions or Follow Up instructions: You may follow-up with your PCP in 1 to 2 weeks. Shouldy your symptoms return or worsen, you may return to the ER or call 911 for help No Smoking: If you smoke, Please STOP! Call for help. Follow-up with: Nancy New ARNP [Primary Care Provider] -
--- NOTE | 2020-05-16 17:34 | DISCHARGE SUMMARY ---
Discharge Summary Admit Date: 05/15/20 Discharge Date: 05/16/20 Discharging Provider: Neeraj Xie Primary Care Provider: Nancy Dhillon Condition at Discharge: Stable Discharge Disposition: 01 Home, Self Care Discharge Facility Name: home - DIAGNOSES Discharge Diagnoses with Status of Each Condition: (1) Shoulder pain, left resolved. pt's Troponin study, EKG study, echo study, all show unremarkable. I got phone call from [facility] radiologist, he state pt's stress test is normal, and he will put the formal report in the computer. Now computer system is slow down. pt may Resume his home medications (2)Paresthesia left arm Resolved now. Patient Report he had left arm sensation abnormal with numbness a nd left arm weakness in the morning. CT of the head show No evidence of hemorrhage or mass effect, also likely represents small vessel Ischemic of uncertain chronicity, MRI is recommended. MRI of brain show no evidence of acute ischemia. Resume home medications (3) Diabetes A1c 8.2, resume home medications (4) HTN (hypertension) Stable, resume home blood pressure medicine (5) Heart murmur Echo study show unremarkable. - HPI History of Present Illness: This is a 69-years old male with a past medical history significant for hypertension, hyperlipidemia, murmur, Head injury, migrainous headache, diabetic 2, depression, claustrophobia, osteoarthritis, Who present to ER complain left arm and left shoulder pain. Patient reports in this morning he suddenly feel left arm and left shoulder pain, he reported pain is 8-9 out of 10. He denies any injury, he denies any sensation abnormal or weakness unilaterally. The pain last about 45 to 1 hours. Patient report his arm still has mild pain. He denies any other location of pain such as no left chest pain. He did report he feel shortness breathing before his left arm pain. He denies nausea, vomiting, diaphoresis. He reported he had heart murmur about when he was 17 years old. Initiated troponin, EKG did not reveals acute heart attack. Chest x-ray was unremarkable. Discussed the care goal with patient, patient requests full code. - HOSPITAL COURSE Hospital Course: Patient was admitted for left arm and shoulder pain. Patient denies injury. Patient has high risk to develop ACS. Patient had troponin study, EKG, echo, stress test, All show unremarkable. Patient report he had numbness and weakness in his left leg arm as well in this morning. CT and MRI of brain show no acute stroke. Patient's left arm pain, shoulder pain was resolved, patient abnormal sensation and weakness was resolved as well. Patient was discharged with hemodynamically stable condition - ALLERGIES Allergies/Adverse Reactions: Allergies Allergy/AdvReac Type Severity Reaction Status Date / Time No Known Drug Allergies Allergy Verified 05/15/20 10:44 - MEDICATIONS Home Medications: Ambulatory Orders Medication Instructions Recorded Confirmed Gabapentin 900 mg PO QPM 10/09/17 05/15/20 Metformin HCl 1,000 mg PO BIDWM 10/09/17 05/15/20 glipiZIDE [Glipizide] 5 mg PO DAILY 10/09/17 05/15/20 Atorvastatin Calcium 80 mg PO QPM 11/25/18 05/15/20 lisinopriL [Lisinopril] 5 mg PO DAILY 11/25/18 05/15/20 - PHYSICAL EXAM AT DISCHARGE General Appearance: positive: No acute distress, Alert. negative: Lethargic Eyes Bilateral: positive: Normal inspection, PERRL, No lid inflammation ENT: positive: ENT inspection nml, No signs of dehydration. negative: Purulent nasal drainage Neck: positive: Nml inspection, Trachea midline. negative: Thyromegaly, Tracheal deviation Respiratory: positive: Chest non-tender, No respiratory distress, Breath sounds nml. negative: Wheezes, Rales, Rhonchi Cardiovascular: positive: Regular rate & rhythm, Systolic murmur. negative: No murmur, Tachycardia, Bradycardia Peripheral Pulses: positive: 2+ Abdomen: positive: Non-tender, Nml bowel sounds, No distention. negative: Tenderness, Guarding, Rebound Back: positive: Nml inspection Skin: positive: Color nml, No rash, Warm, Dry. negative: Cyanosis, Diaphoresis, Pallor Extremities: positive: Non-tender, Full ROM, Nml appearance. negative: Calf tenderness Neurologic/Psychiatric: positive: Oriented x3, Motor nml, Sensation nml, Mood/affect nml. negative: Weakness, Sensory loss, Facial droop, Slurred/abnml speech, Depressed mood/affect - LABS Result Diagrams: 05/16/20 04:54 05/16/20 04:54 - SEPSIS Current Stage of Sepsis: Ruled out - FOLLOW UP Follow Up: Your left arm pain, abnormal sensation and weakness were resolved. MRI reveals you has no stroke. Stress test, ECHO study, Troponin and EKG study all were unremarkable, did not reveals acute heart attack. You may resume your home medications, keep hydration at home, followup with your PCP in one to two weeks. You may follow-up with your PCP in 1 to 2 weeks. Should your symptoms return or worsen, you may return to the ER or call 911 for help - TIME SPENT Time Spent in Discharge (Minutes): 30
[2020-05-16] MEDS ORDERED: ATORVASTATIN 40 MG TABLET PO SCH (21:00)
--- NOTE | 2020-05-17 08:48 | CARDIAC PROCEDURE NOTE ---
DATE OF SERVICE: 05/16/2020 Physician: Bina Chawla MD, [facility] INDICATION: Chest pain. CARDIAC RISK FACTORS: Male gender, diabetes, hypertension, hyperlipidemia. DESCRIPTION OF PROCEDURE: After signing informed consent, the patient underwent a Geovanny-protocol treadmill stress test with nuclear myocardial perfusion imaging. RESTING HEART RATE: 64. PEAK HEART RATE: 146 (95% predicted maximum heart rate for age). RESTING BLOOD PRESSURE: 125/74. PEAK BLOOD PRESSURE: 190/50. The patient exercised for 8 minutes on a Geovanny-protocol treadmill stress test. He achieved a peak heart rate of 146 (95% PMHR) and 10.16 METs. The patient had no chest pain, shoulder pain or arm pain. He had mild shortness of breath. Oxygen saturation was 94-98% on room air throughout the test. He rated his perceived exertion at 14/20 at peak on the Sotero scale. RESTING EKG: Normal sinus rhythm, poor R-wave progression. EKG at mid test showed new T-wave flattening in leads II, III, aVF, and V6. EKG at peak showed continued T-wave flattening and new ST depressions of 1.5 mm in leads II, III, aVF, and V5 through V6. These changes reverted to baseline after 3 minutes. SUMMARY: 1. Abnormal resting EKG. 2. Ischemic changes are seen by EKG criteria during this treadmill stress test. 3. Fair to good exercise tolerance. 4. Nuclear images were reported separately and showed: Normal distribution of tracer, no fixed or reversible perfusion defects. IMPRESSION: 1. Nonspecific EKG changes with exercise.. 2. Normal stress test. TD: 05/16/2020 12:46 INDU
--- NOTE | 2020-05-17 14:06 | Nuclear Medicine Report ---
PROCEDURE: Rest and exercise myocardial perfusion SPECT with gated imaging and ejection fraction INDICATIONS: 69 year old man with chest pain RADIOPHARMACEUTICAL: 10.4 mCi Tc-99m Myoview IV at rest and 38.9 mCi Tc-99m Myoview IV at peak exerc ise. [id number] was performed. TECHNIQUE: Radiopharmaceutical was injected at peak stress test, and also at rest. SPECT images wer e obtained. SPECT myocardial perfusion images were displayed in short axis, horizontal long axis, an d vertical long axis views. Gated images were reviewed using AutoQUANT software. COMPARISON: None available. FINDINGS: Raw data: There is good myocardial labeling by radiotracer. No significant motion artifacts. Lung- to-heart ratio is 0.37 (normal is less than 0.38 for tetrafosmin tracer). Left ventricle function: Gated images demonstrate normal left ventricle wall thickening. No segment al wall motion abnormality. No transient ischemic dilation; TID is 0.74 (normal less than 1.3). The left ventricle resting end-diastolic volume is normal. Left ventricle stress ejection fraction is > 70%; normal values are above 45%. Myocardial perfusion: There is normal distribution of activity in the left and right ventricular sherrie cardium. No fixed or reversible perfusion defects. IMPRESSION: 1. Normal myocardial perfusion images. No perfusion defect to suggest myocardial ischemia or infarct. 2. Normal left ventricular volume and systolic function. 3. Please correlate with stress EKG report. The result was discussed with Dr. Xie. PQRS ATTESTATIONS: Measure 322 - Is this imaging test primarily performed on a low-risk surgery patient for preoperative evaluation within 30 days preceding their low-risk non-cardiac surgery? Low-risk surgery is defined as cardiac or myocardial infarction less than 1%, including (but not limited to) endoscopic pr ocedures, superficial procedures, cataract surgery, and excisional breast surgery: Answer: No Measure 323 - Is this imaging test performed primarily for the monitoring of an asymptomatic patient who had percutaneous coronary intervention on the visit date or within 2 years of the visit date? An swer: No Measure 324 - Is this imaging test performed primarily for the initial detection and risk assessment on an asymptomatic, low coronary heart disease patient? Low CHD risk definition = clinicians should consider the maximum number of available patient factors used to estimate risk based on [place] (A TP III criteria), typically age, gender, diabetes, smoking status, and use of blood pressure medicati on, and integrate age appropriate estimates for missing elements, such as LDL or standard blood press ure. Answer: No Reviewed by: Junaid Bradford MD on 05/17/2020 10:42 AM PST Approved by: Junaid Bradford MD on 05/17/2020 10:42 AM PST Station ID: [id number]
== END 2020-05-16 17:53 | disposition home or self-care (01) ==
LOC: ED 10:31 → ICU 13:27
PROVIDERS: ADMIT Nurse Practitioner Gerontology; ATTEND Nurse Practitioner Gerontology
DX: M25.512 Pain in left shoulder (principal); M79.602 Pain in left arm; R20.2 Paresthesia of skin; I10 Essential (primary) hypertension; E78.5 Hyperlipidemia, unspecified; E11.9 Type 2 diabetes mellitus without complications; R01.1 Cardiac murmur, unspecified; F40.240 Claustrophobia; M19.90 Unspecified osteoarthritis, unspecified site; Z20.822 Contact with and (suspected) exposure to COVID-19; Z79.84 Long term (current) use of oral hypoglycemic drugs; Z79.899 Other long term (current) drug therapy; Z87.891 Personal history of nicotine dependence; Z82.49 Family history of ischemic heart disease and other diseases of the circulatory system
CPT/HCPCS: 36415; 70450; 70551; 71045; 78452; 80048; 80053; 80061; 83036; 83690; 84484; 85025; 87150; 87631; 93005; 93017; 93306; 96374; 99284; 99285; A9270; A9500; G0378; J2060; J7120; 0202U; 83721

== ENCOUNTER 2020-05-17 14:58 | Outpatient (CLI) | payer MEDICARE, OTHER ==
--- NOTE | 2020-05-17 15:51 | XRAY Report ---
PROCEDURE: Cervical Spine 2 View INDICATIONS: CERVICALGIA TECHNIQUE: 2 view(s) of the cervical spine were acquired. COMPARISON: None. FINDINGS: Bones: No fractures or dislocations to the C7-T1 level. The lateral masses of C1 appear intact on t he odontoid view. No suspicious bony lesions. There is straightening of normal cervical curvature w ith trace retrolisthesis of C5 on C6. Moderate to severe disc space narrowing is present C4-5, C5-6, C6-7. Multilevel uncovertebral arthropathy is present. Soft tissues: No prevertebral soft tissue swelling. IMPRESSION: Multiple degenerative changes most notable in the lower cervical spine. Reviewed by: Lori Barrera MD on 05/17/2020 3:49 PM PST Approved by: Lori Barrera MD on 05/17/2020 3:49 PM PST Station ID: [id number]
== END 2020-05-17 14:59 | disposition home or self-care (01) ==
LOC: DI.S 14:58
PROVIDERS: ATTEND Internal Medicine
DX: M47.22 Other spondylosis with radiculopathy, cervical region (principal)

== ENCOUNTER 2020-10-03 07:10 | Outpatient (CLI) | payer MEDICARE, OTHER | END 2020-10-03 07:11 | disposition home or self-care (01) | LOC: LAB.S 07:10 | PROVIDERS: ATTEND Radiology Radiation Oncology | DX: C61 Malignant neoplasm of prostate (principal) | CPT/HCPCS: 36415; 84153 ==

== ENCOUNTER 2020-12-06 07:09 | Outpatient (CLI) | payer MEDICARE, OTHER ==
[2020-12-06 15:05] LABS: BASOPHILS % (AUTO) 0.5 %; EOSINOPHILS # (AUTO) 0.2 10^3/uL (0.0-0.7); EOSINOPHILS % (AUTO) 2.3 %; HCT - HEMATOCRIT 43.6 % (42.0-52.0); HGB - HEMOGLOBIN 13.9 g/dL (14.0-18.0); LYMPHOCYTES # (AUTO) 2.2 10^3/uL (1.5-3.5); MEAN CORPUSCULAR HEMOGLOBIN 28.5 pg (27.0-31.0); MEAN CORPUSCULAR HGB CONC 31.9 g/dL (32.0-36.0); MEAN CORPUSCULAR VOLUME 89.3 fL (80.0-94.0); MEAN PLATELET VOLUME 11.2 fL (7.4-11.4); MONOCYTES # (AUTO) 0.6 10^3/uL (0.0-1.0); MONOCYTES % (AUTO) 8.9 %; NEUTROPHILS # (AUTO) 3.5 10^3/uL (1.5-6.6); PLT - PLATELET COUNT 234 10^3/uL (130-450); RED BLOOD COUNT 4.88 10^6/uL (4.70-6.10); RED CELL DISTRIBUTION WIDTH 12.4 % (12.0-15.0); WHITE BLOOD COUNT 6.5 x10^3/uL (4.8-10.8)
[2020-12-06 15:21] LABS: ALBUMIN 4.1 g/dL (3.2-5.5); ALBUMIN/GLOBULIN RATIO 1.4 (1.0-2.2); ALKALINE PHOSPHATASE 47 IU/L (42-121); ALT ALANINE AMINOTRANSFERASE 32 IU/L (10-60); AST ASPARTATE AMINOTRANSFERASE 20 IU/L (10-42); BUN - BLOOD UREA NITROGEN 26 mg/dL (6-20); CALCIUM 9.3 mg/dL (8.5-10.3); CARBON DIOXIDE - CO2 28 mmol/L (21-32); CHLORIDE 102 mmol/L (101-111); CHOL/HDL RATIO 4.3 (<5.0); CHOLESTEROL 164 mg/dL; CREATININE 0.9 mg/dL (0.6-1.2); GFR - MDRD 84 (>89); GLUCOSE 167 mg/dL (70-100); HDL CHOLESTEROL 38 mg/dL; LDL CHOLESTEROL,CALCULATED 64 mg/dL; LDL/HDL RATIO 1.7 (<3.6); SODIUM 140 mmol/L (135-145); TOTAL PROTEIN 7.1 g/dL (6.7-8.2); TRIGLYCERIDES 308 mg/dL; VLDL CHOLESTEROL 62 mg/dL
[2020-12-06 15:29] LABS: CREATININE,URINE 279.9 mg/dL; MICROALBUM/CREATININE RATIO,UR 2.9 ug/mg (<30.0); MICROALBUMIN,URINE 0.8 mg/dL (0-300.0)
[2020-12-06 21:01] LABS: ESTIMATED AVERAGE GLUCOSE 203 mg/dL (70-100); HEMOGLOBIN A1c% 8.7 % (4.27-6.07)
== END 2020-12-06 07:10 | disposition home or self-care (01) ==
LOC: LAB.S 07:09
PROVIDERS: ATTEND Internal Medicine
DX: E11.9 Type 2 diabetes mellitus without complications (principal); C61 Malignant neoplasm of prostate
CPT/HCPCS: 36415; 80053; 80061; 82043; 82570; 83036; 83721; 84153; 85025

== ENCOUNTER 2021-03-19 07:40 | Outpatient (CLI) | payer MEDICARE, OTHER | END 2021-03-19 07:41 | disposition home or self-care (01) | LOC: LAB.S 07:40 | PROVIDERS: ATTEND Internal Medicine | DX: C61 Malignant neoplasm of prostate (principal) | CPT/HCPCS: 36415; 84153 ==

== ENCOUNTER 2021-06-06 07:03 | Outpatient (CLI) | payer MEDICARE, OTHER ==
[2021-06-06 14:34] LABS: BASOPHILS % (AUTO) 0.4 %; EOSINOPHILS # (AUTO) 0.2 10^3/uL (0.0-0.7); EOSINOPHILS % (AUTO) 2.6 %; HCT - HEMATOCRIT 42.6 % (42.0-52.0); LYMPHOCYTES # (AUTO) 2.3 10^3/uL (1.5-3.5); LYMPHOCYTES % (AUTO) 40.5 %; MEAN CORPUSCULAR HEMOGLOBIN 28.7 pg (27.0-31.0); MEAN CORPUSCULAR HGB CONC 32.9 g/dL (32.0-36.0); MEAN CORPUSCULAR VOLUME 87.5 fL (80.0-94.0); MEAN PLATELET VOLUME 11.3 fL (7.4-11.4); MONOCYTES # (AUTO) 0.6 10^3/uL (0.0-1.0); MONOCYTES % (AUTO) 10.7 %; NEUTROPHILS # (AUTO) 2.6 10^3/uL (1.5-6.6); NEUTROPHILS % (AUTO) 45.6 %; PLT - PLATELET COUNT 226 10^3/uL (130-450); RED BLOOD COUNT 4.87 10^6/uL (4.70-6.10); RED CELL DISTRIBUTION WIDTH 12.7 % (12.0-15.0); WHITE BLOOD COUNT 5.7 x10^3/uL (4.8-10.8)
[2021-06-06 15:11] LABS: ALBUMIN/GLOBULIN RATIO 1.3 (1.0-2.2); ALKALINE PHOSPHATASE 37 IU/L (42-121); ALT ALANINE AMINOTRANSFERASE 28 IU/L (10-60); AST ASPARTATE AMINOTRANSFERASE 19 IU/L (10-42); BILIRUBIN,TOTAL 0.8 mg/dL (0.2-1.0); BUN - BLOOD UREA NITROGEN 28 mg/dL (6-20); CALCIUM 9.5 mg/dL (8.5-10.3); CARBON DIOXIDE - CO2 27 mmol/L (21-32); CHLORIDE 101 mmol/L (101-111); CHOL/HDL RATIO 3.1 (<5.0); CHOLESTEROL 127 mg/dL; GFR - MDRD 74 (>89); GLUCOSE 151 mg/dL (70-100); HDL CHOLESTEROL 41 mg/dL; LDL CHOLESTEROL,CALCULATED 58 mg/dL; LDL/HDL RATIO 1.4 (<3.6); SODIUM 139 mmol/L (135-145); TOTAL PROTEIN 7.1 g/dL (6.7-8.2); TRIGLYCERIDES 138 mg/dL; VLDL CHOLESTEROL 28 mg/dL
[2021-06-06 21:10] LABS: ESTIMATED AVERAGE GLUCOSE 186 mg/dL (70-100); HEMOGLOBIN A1c% 8.1 % (4.27-6.07)
== END 2021-06-06 07:04 | disposition home or self-care (01) ==
LOC: LAB.S 07:03
PROVIDERS: ATTEND Internal Medicine
DX: E11.9 Type 2 diabetes mellitus without complications (principal)
CPT/HCPCS: 36415; 80053; 80061; 83036; 83721; 85025

== ENCOUNTER 2021-06-24 08:15 | Day surgery (SDC) | payer MEDICARE, OTHER ==
[2021-06-24] MEDS ORDERED: LACTATED RINGERS 1,000 ML IV ONE ×2 (08:35→10:00)
--- NOTE | 2021-06-24 08:58 | ANESTHESIA ---
Pre-Anesthesia VS, & Labs - Diagnosis screening - Procedure colonoscopy Vital Signs: Temp Pulse Resp BP Pulse Ox 36.3 C L 86 12 159/110 H 98 06/24/21 08:35 06/24/21 08:35 06/24/21 08:35 06/24/21 08:35 06/24/21 08:35 Height: 5 ft 10 in Weight (kg): 77.4 kg Body Mass Index: 24.5 BMI Classification: Healthy weight - NPO >8 hours - Lab Results Current Lab Results: Laboratory Tests 06/24/21 08:38: POC Whole Bld Glucose 136 H Home Medications and Allergies Gabapentin 900 mg PO QPM 10/09/17 Metformin HCl 1,000 mg PO BIDWM 10/09/17 glipiZIDE [Glipizide] 5 mg PO DAILY 10/09/17 Atorvastatin Calcium 80 mg PO QPM 11/25/18 lisinopriL [Lisinopril] 5 mg PO DAILY 11/25/18 Allergies/Adverse Reactions: Allergies Allergy/AdvReac Type Severity Reaction Status Date / Time No Known Drug Allergies Allergy Verified 06/20/21 12:32 Anes History & Medical History - Anesthetic History Anesthesia Complications: reports: No previous complications - Medical History Cardiovascular: reports: Hypertension, High cholesterol, Murmur Pulmonary: reports: None Gastrointestinal: reports: Colon polyps Urinary: reports: Other Neuro: reports: Head injury, Migraines Musculoskeletal: reports: Osteoarthritis Endocrine/Autoimmune: reports: Type 2 diabetes Blood Disorders: reports: None Skin: reports: None Smoking Status: Never smoker - Surgical History General: reports: Hiatal hernia repair, Colonoscopy Eyes Ears Nose Throat (EENT): reports: Tonsil/Adenoidectomy Exam Dental: WNL Mallampati classification: I Thyromental Distance: greater than 6 cm Respiratory: Lungs clear Cardiovascular: Regular rate, Normal S1, Normal S2 Plan Anesthesia Type: Total IV Consent for Procedure(s) Verified and Reviewed: Yes Code Status: Attempt Resuscitation ASA classification: 2-Mild systemic disease Is this case an emergency?: No
[2021-06-24] MEDS ORDERED: PROPOFOL 500 MG/50 ML 500 MG/50 ML VIAL ONE (09:29)
[2021-06-24] MEDS ORDERED: GLYCOPYRROLATE 1 MG/5 ML VIAL ONE (09:57)
[2021-06-24 10:56] VITALS: BP 127/74
--- NOTE | 2021-06-24 12:04 | ANESTHESIA POST OP EVALUATION ---
Anesthesia Post Eval - Post Anesthesia Eval Vitals: Last Vital Signs Temp 36.2 C L 06/24/21 10:35 Pulse 88 06/24/21 10:35 Resp 16 06/24/21 10:35 BP 127/74 06/24/21 10:35 Pulse Ox 99 06/24/21 10:35 CV Function Including HR & BP: Stable Pain Control: Satisfactory Nausea & Vomiting: Negative Mental Status: Baseline Respiratory Status: Airway Patent Hydration Status: Satisfactory Anesthesia Complications: None
== END 2021-06-24 08:16 | disposition home or self-care (01) ==
LOC: SDS 08:15
PROVIDERS: ATTEND Surgery
PROC: 0DBE8ZZ Excision of Large Intestine, Via Natural or Artificial Opening Endoscopic (ICD-10-PCS; principal; 2021-06-24 09:30)
DX: R19.4 Change in bowel habit (principal); R19.7 Diarrhea, unspecified; K57.30 Diverticulosis of large intestine without perforation or abscess without bleeding; K64.8 Other hemorrhoids; E11.9 Type 2 diabetes mellitus without complications; I10 Essential (primary) hypertension; Z79.84 Long term (current) use of oral hypoglycemic drugs; Z79.899 Other long term (current) drug therapy; Z85.46 Personal history of malignant neoplasm of prostate; Z92.3 Personal history of irradiation
CPT/HCPCS: 45380; 81599; 83630; 87015; 87177; 87209; 87272; 87329; 87493; J7120; 87045; 87046

== ENCOUNTER 2021-09-10 07:52 | Outpatient (CLI) | payer MEDICARE, OTHER | END 2021-09-10 07:53 | disposition home or self-care (01) | LOC: LAB.S 07:52 | PROVIDERS: ATTEND Radiology Radiation Oncology | DX: C61 Malignant neoplasm of prostate (principal) | CPT/HCPCS: 36415; 84153 ==

== ENCOUNTER 2022-09-24 08:00 | Outpatient (CLI) | payer MEDICARE, OTHER ==
[2022-09-24 20:36] LABS: BILIRUBIN,URINE NEGATIVE (NEGATIVE); GLUCOSE, URINE (UA) >=1000 mg/dL (NEGATIVE); KETONES,URINE (UA) TRACE mg/dL (NEGATIVE); LEUKOCYTE ESTERASE, URINE NEGATIVE (NEGATIVE); NITRITE,URINE NEGATIVE (NEGATIVE); OCCULT BLOOD,URINE NEGATIVE (NEGATIVE); PROTEIN,URINE NEGATIVE (NEGATIVE); UROBILINOGEN,URINE 0.2 (NORMAL) E.U./dL (NORMAL)
[2022-09-24 20:45] LABS: CLARITY,URINE CLOUDY (CLEAR); RBC,URINE None Seen /HPF (0-5); SQUAMOUS EPITHELIAL CELL,UR NONE SEEN (<= Few); WBC,URINE 0-3 /HPF (0-3)
[2022-09-24 20:46] LABS: AMORPHOUS SEDIMENT,UR Marked /LPF; BACTERIA,URINE None Seen /HPF (None Seen)
== END 2022-09-24 23:59 | disposition home or self-care (01) ==
LOC: LAB.S 08:00
PROVIDERS: ATTEND Emergency Medicine
DX: N45.1 Epididymitis (principal)
CPT/HCPCS: 81001; 87086

== ENCOUNTER 2022-10-28 08:00 | Outpatient (CLI) | payer MEDICARE ==
--- NOTE | 2022-10-28 18:04 | XRAY Report ---
PROCEDURE: Wrist 3 View RT INDICATIONS: RIGHT WRIST SPRAIN TECHNIQUE: 3 views of the wrist were acquired. COMPARISON: None. FINDINGS: Bones: No fractures or dislocations. No suspicious bony lesions. Soft tissues: No suspicious soft tissue calcifications. IMPRESSION: No acute bony abnormality. If there is anatomic snuff box tenderness, consider wrist immobilization a nd repeat radiographs in 10-14 days or cross-sectional imaging now. If pain persists with conservativ e management, consider repeat radiographs in 10-14 days or cross-sectional imaging. Reviewed by: Hossein Dawson MD on 10/28/2022 6:03 PM PDT Approved by: Hossein Dawson MD on 10/28/2022 6:03 PM PDT Station ID: [id number]
== END 2022-10-28 23:59 | disposition home or self-care (01) ==
LOC: DI.S 08:00
PROVIDERS: ATTEND Physician Assistant Medical
DX: S66.911A Strain of unspecified muscle, fascia and tendon at wrist and hand level, right hand, initial encounter (principal)

== ENCOUNTER 2023-01-14 07:05 | Outpatient (CLI) | payer MEDICARE, OTHER ==
[2023-01-14 15:13] LABS: BASOPHILS % (AUTO) 0.4 %; EOSINOPHILS # (AUTO) 0.1 10^3/uL (0.0-0.7); EOSINOPHILS % (AUTO) 2.5 %; HCT - HEMATOCRIT 44.7 % (42.0-52.0); HGB - HEMOGLOBIN 14.4 g/dL (14.0-18.0); LYMPHOCYTES # (AUTO) 2.3 10^3/uL (1.5-3.5); LYMPHOCYTES % (AUTO) 41.6 %; MEAN CORPUSCULAR HEMOGLOBIN 28.2 pg (27.0-31.0); MEAN CORPUSCULAR HGB CONC 32.2 g/dL (32.0-36.0); MEAN CORPUSCULAR VOLUME 87.5 fL (80.0-94.0); MEAN PLATELET VOLUME 10.6 fL (7.4-11.4); MONOCYTES # (AUTO) 0.5 10^3/uL (0.0-1.0); MONOCYTES % (AUTO) 9.4 %; NEUTROPHILS # (AUTO) 2.6 10^3/uL (1.5-6.6); NEUTROPHILS % (AUTO) 45.9 %; PLT - PLATELET COUNT 257 10^3/uL (130-450); RED BLOOD COUNT 5.11 10^6/uL (4.70-6.10); RED CELL DISTRIBUTION WIDTH 12.4 % (12.0-15.0); WHITE BLOOD COUNT 5.6 x10^3/uL (4.8-10.8)
[2023-01-14 15:52] LABS: ALBUMIN 4.2 g/dL (3.2-5.5); ALBUMIN/GLOBULIN RATIO 1.8 (1.0-2.2); ALKALINE PHOSPHATASE 47 IU/L (42-121); ALT ALANINE AMINOTRANSFERASE 20 IU/L (10-60); AST ASPARTATE AMINOTRANSFERASE 17 IU/L (10-42); BILIRUBIN,TOTAL 0.4 mg/dL (0.2-1.0); BUN - BLOOD UREA NITROGEN 21 mg/dL (6-20); CALCIUM 9.4 mg/dL (8.5-10.3); CARBON DIOXIDE - CO2 30 mmol/L (21-32); CHLORIDE 105 mmol/L (101-111); CHOL/HDL RATIO 6.9 (<5.0); CHOLESTEROL 248 mg/dL; GFR - MDRD 74 (>89); GLUCOSE 130 mg/dL (74-104); HDL CHOLESTEROL 36 mg/dL; LDL CHOLESTEROL,CALCULATED 143 mg/dL; POTASSIUM 4.2 mmol/L (3.5-4.5); SODIUM 140 mmol/L (135-145); TOTAL PROTEIN 6.6 g/dL (6.4-8.9); TRIGLYCERIDES 344 mg/dL (48-352); VLDL CHOLESTEROL 69 mg/dL
[2023-01-14 20:34] LABS: ESTIMATED AVERAGE GLUCOSE 148 mg/dL (70-100); HEMOGLOBIN A1c% 6.8 % (4.27-6.07)
== END 2023-01-14 07:06 | disposition home or self-care (01) ==
LOC: LAB.S 07:05
PROVIDERS: ATTEND Registered Nurse
DX: I10 Essential (primary) hypertension (principal); Z79.899 Other long term (current) drug therapy; E78.5 Hyperlipidemia, unspecified; E11.9 Type 2 diabetes mellitus without complications; C61 Malignant neoplasm of prostate
CPT/HCPCS: 36415; 80053; 80061; 83036; 83721; 84153; 85025

== ENCOUNTER 2023-03-12 08:00 | Outpatient (CLI) | payer MEDICARE | END 2023-03-12 08:01 | disposition home or self-care (01) | LOC: LAB.S 08:00 | PROVIDERS: ATTEND Physician Assistant Medical | DX: E16.2 Hypoglycemia, unspecified (principal) | CPT/HCPCS: 82962 ==

== ENCOUNTER 2023-03-12 11:54 | Outpatient (CLI) | payer MEDICARE, OTHER ==
[2023-03-12 15:19] LABS: BASOPHILS % (AUTO) 0.6 %; EOSINOPHILS # (AUTO) 0.1 10^3/uL (0.0-0.7); EOSINOPHILS % (AUTO) 2.1 %; HGB - HEMOGLOBIN 14.7 g/dL (14.0-18.0); LYMPHOCYTES % (AUTO) 38.1 %; MEAN CORPUSCULAR HGB CONC 33.4 g/dL (32.0-36.0); MEAN CORPUSCULAR VOLUME 86.8 fL (80.0-94.0); MONOCYTES # (AUTO) 0.8 10^3/uL (0.0-1.0); MONOCYTES % (AUTO) 14.2 %; NEUTROPHILS # (AUTO) 2.4 10^3/uL (1.5-6.6); NEUTROPHILS % (AUTO) 44.6 %; PLT - PLATELET COUNT 217 10^3/uL (130-450); RED BLOOD COUNT 5.07 10^6/uL (4.70-6.10); RED CELL DISTRIBUTION WIDTH 12.5 % (12.0-15.0); WHITE BLOOD COUNT 5.4 x10^3/uL (4.8-10.8)
[2023-03-12 15:45] LABS: ALBUMIN 4.3 g/dL (3.2-5.5); ALBUMIN/GLOBULIN RATIO 1.5 (1.0-2.2); BILIRUBIN,TOTAL 0.4 mg/dL (0.2-1.0); CALCIUM 9.8 mg/dL (8.5-10.3); CREATININE 0.9 mg/dL (0.6-1.3); POTASSIUM 4.1 mmol/L (3.5-4.5); TOTAL PROTEIN 7.1 g/dL (6.4-8.9)
[2023-03-12 15:49] LABS: FERRITIN 168.4 ng/mL (23.9-336.2)
[2023-03-12 20:40] LABS: THYROID STIMULATING HORMONE 1.42 uIU/mL (0.34-5.60)
== END 2023-03-12 11:55 | disposition home or self-care (01) ==
LOC: LAB.S 11:54
PROVIDERS: ATTEND Physician Assistant Medical
DX: E11.9 Type 2 diabetes mellitus without complications (principal); R01.1 Cardiac murmur, unspecified; R42 Dizziness and giddiness; R06.02 Shortness of breath; Z13.29 Encounter for screening for other suspected endocrine disorder
CPT/HCPCS: 36415; 80053; 82607; 82728; 83540; 84443; 84466; 85025

== ENCOUNTER 2023-07-08 08:06 | Outpatient (CLI) | payer MEDICARE, OTHER | END 2023-07-08 08:07 | disposition home or self-care (01) | LOC: LAB.S 08:06 | PROVIDERS: ATTEND Radiology Radiation Oncology | DX: C61 Malignant neoplasm of prostate (principal) | CPT/HCPCS: 36415; 84153 ==